=== PATIENT | male | born 1975 | race African-American/Black ===

== ENCOUNTER 2024-03-20 15:39 | Emergency (ER) | payer OTHER ==
[~2024-03-20] VITALS: Ht 177.8 cm; Wt 90.0 kg
[2024-03-20] MEDS ORDERED: Diph, Acellular Pertussis, Tet 0.5 ML/VIAL (Tdap) SDV IM ONE (15:45)
[2024-03-20] MEDS ORDERED: STERILE WATER 10 ML/VIAL SDV IM ONE (15:45)
[2024-03-20] MEDS ORDERED: LIDOcaine HCl 1% (Local Anesth.) 20 ML VIAL STI STA (15:45)
[2024-03-20] MEDS ORDERED: POVIDONE IODINE 0.5 OZ/BTL TOP ONE (15:45)
[2024-03-20] MEDS ORDERED: ceFAZolin 1 GM/VIAL SDV IM ONE (15:45)
[2024-03-20 16:51] VITALS: BP 140/90
[2024-03-20] MEDS ORDERED: CEPHALEXIN500 M1 PO (16:57)
[2024-03-20] MEDS ORDERED: NAPROXEN500 MG PO (16:57)
== END 2024-03-20 17:09 | DRG 563 ==
LOC: ED 15:39
PROC: 0HQFXZZ Repair Right Hand Skin, External Approach (ICD-10-PCS; principal; 2024-03-20)
PROC: 0RSWXZZ Reposition Right Finger Phalangeal Joint, External Approach (ICD-10-PCS; 2024-03-20)
DX: S62.614B Displaced fracture of proximal phalanx of right ring finger, initial encounter for open fracture (principal); X58.XXXA Exposure to other specified factors, initial encounter; Y93.61 Activity, american tackle football; Y92.149 Unspecified place in prison as the place of occurrence of the external cause
CPT/HCPCS: 90715; J0690